=== PATIENT | female | born 1950 | race Caucasian/White ===

== ENCOUNTER → 2019-01-01 07:21 | Outpatient (CLI) | payer MEDICARE, SELFPAY ==
--- NOTE | 2019-01-01 07:23 | DI.US.S_ITS ---
PROCEDURE: US EXTREMITY NONVASC LOWER LT INDICATIONS: LEFT BUTTOCK LUMP TECHNIQUE: Real-time scanning was performed of the left buttock, with image documentation. COMPARISON: None. FINDINGS: Isoechoic, avascular soft tissue mass corresponding to the palpable abnormality measuring 9.0 x 5.3 x 12.4 cm. IMPRESSION: An isoechoic left buttock mass corresponding to the palpable abnormality. Findings may be related to lipoma given the sonographic appearance, but other benign or malignant neoplastic processes cannot be excluded. If clinically indicated, MRI with and without contrast could be performed for further characterization. Dictated by: Pete Kasper Krishna Interpreted: Karolyn Abernathy MD on 01/01/2019 at 9:00 Approved by: Karolyn Abernathy M.D. on 01/01/2019 at 10:44
== END ==
PROVIDERS: Family Provider Family Medicine; PCP Family Medicine; Visit Provider Physician Assistant
DX: R22.2 Localized swelling, mass and lump, trunk (principal)
CPT/HCPCS: 76882

== ENCOUNTER → 2019-01-24 13:13 | Outpatient (CLI) | payer MEDICARE, SELFPAY ==
--- NOTE | 2019-01-24 13:16 | DI.MRI.S_ITS ---
PROCEDURE: MR PELIS WO/W CON INDICATIONS: L gluteal area mass TECHNIQUE: Noncontrast coronal T1 spin echo and STIR, sagittal T1 spin echo with fat saturation and STIR, axial T1 spin echo and T2 fast spin echo with fat saturation. After the administration of contrast, axial/sagittal/coronal T1 spin echo with fat saturation through the pelvis. COMPARISON: None. FINDINGS: Image quality: Excellent. Bones: The visualized bone marrow demonstrates normal signal on all sequences. The overlying cortex appears intact. No abnormal intraosseous enhancement. L5-S1 spondylosis. Soft tissues: There is a prominent left gluteal fat signal intensity mass measuring approximately 13.6 x 6.5 cm although exact margins are not clear due to poorly visualized capsule. There are internal areas of mildly T2 hyperintense septations. These may demonstrate minimal enhancement on postcontrast pulse sequences. No definite enhancing mass or nodule is identified. IMPRESSION: Large predominantly fat signal intensity, superficial mass along the left gluteal region suggestive of lipoma. However, the presence of mildly T2 hyperintense, potentially minimally enhancing septations raises possibility of unencapsulated liposarcoma although this is technically nonspecific. As such, consider continued surveillance with repeat pelvic MRI with and without contrast to document long-term stability (in 6 months, or sooner if progressive palpable changes). Also, recommend oncologic surgical consultation and clinical/symptomatic management. Dictated by: Aguila Woo M.D. on 01/25/2019 at 9:11 Approved by: Aguila Woo M.D. on 01/25/2019 at 9:20
== END ==
PROVIDERS: Family Provider Family Medicine; PCP Family Medicine; Visit Provider Family Medicine
DX: R22.40 Localized swelling, mass and lump, unspecified lower limb (principal)
CPT/HCPCS: 72197; A9579

== ENCOUNTER 2019-03-28 14:27 | Day surgery (SDC) | payer MEDICARE, SELFPAY ==
[2019-03-14 10:58] VITALS: BMI 35.2
[2019-03-28] VITALS (7 sets, daily range): BP systolic 126–182; BP diastolic 61–111; PULSE 66–91; RESP 10–20; TEMP 36.3–36.6; O2SAT 95–98; BMI 35.2
--- NOTE | 2019-03-28 | PATH_ITS ---
[facility] Accession Number: [id number] . 01 Material submitted: . buttock - LEFT BUTTOCK MASS . 01 Diagnosis: Left Buttock Mass, Excision: Mature adipose tissue with degenerative changes and fat necrosis. Negative for atypia and malignancy. MRV/04/02/2019 . 01 Electronically signed: . Satnam Jimenez MD, Pathologist NPI- [id number] . 01 Gross description: . Received in formalin, labeled mass, left buttock, is a bright yellow-orange rubbery fatty mass (13.4 x 9.7 x 4.5 cm) with a homogenous unremarkable cut surface. Computer [employer] tissue submitted in cassettes A1-A8. ([id number]) /MRV . 01 Pathologist provided ICD-10: D17.9 . 01 CPT . 242716 Performed at: [address] [facility], [place], [place] [id number] MD Hola Courtney MD Phone: [phone]
[2019-03-28] MEDS: LACTATED RINGERS 1,000 ML 42 ML IV (14:30)
--- NOTE | 2019-03-28 15:01 | PM.PREOP ---
Pre-operative Note Interval Note History & Physical reviewed/Exam performed by Physician: Yes Changes to H&P: No
--- NOTE | 2019-03-28 15:19 | PM.PREOP ---
Pre-operative Note Interval Note History & Physical reviewed/Exam performed by Physician: Yes Changes to H&P: No
[2019-03-28] MEDS: CEFAZOLIN 2 GM/100 ML FROZ.PIGGY IV (15:20)
[2019-03-28] MEDS: BUPIVACAINE 0.5% (PF) VIAL 30 ML INJ (15:40)
--- NOTE | 2019-03-28 15:44 | SUR.OPER ---
Lateral on padded OR bed, head on pillow, bottom leg bent with gel pad under knee to foot, upper leg straight and supported with pillows. Upper arm supported by pillows and secured over bottom arm to padded arm board. Safety belt at hip, tape over blanket lower legs.
--- NOTE | 2019-03-28 16:19 | PM.OP.1 ---
Operative Date/Time/Diagnoses Date of procedure: 03/28/19 Time of procedure: 16:19 Pre-op diagnosis: Buttock mass probable lipoma Post-op diagnosis: same (Lesion 14 cm in largest diameter) Procedure & Clinicians Procedure: Excision of mass Same procedure as scheduled: Yes Indications: Growing mass in the buttock here for excision Surgeon: Eladio Atkinson Click Yes if Unassisted: Yes Anesthesia Type: General Operative Notes Findings: Large fatty mass consistent with a large lipoma Closure Type: primary Specimen(s): other (Mass) Prosthetic devices, grafts, tissues, transplants, or devices: None Estimated Blood Loss (mL): 15 Blood products transfused: none Procedure in detail: The patient was placed in the right lateral decubitus position on a beanbag and underwent general LMA anesthesia. The corbett bag was suctioned to hold the patient in place. she was prepped and draped in the usual fashion. local anesthetic was infiltrated overlying the mass. A small incision was made and carried down to the level of the mass. The mass appeared like a typical lipoma. There was no evidence of a sarcoma. Because of this the patient had additional local anesthetic infiltrated and the incision extended. Using principally blunt dissection and cautery the mass was from surrounding structures delivered into the wound and removed. one blood vessel was suture ligated. The rest were cauterized. The this hemostasis achieved. the subcu was closed with interrupted 3 0 Vicryl. The skin was closed with a running 4 0 Vicryl sh particular stitch and Steri-Strips. the patient was placed back on her bed, awakened and extubated and taken to the recovery area in good condition Complications: none Condition: stable Disposition: PACU
--- NOTE | 2019-03-28 16:47 | SUR.PHASEII ---
pt arrived to phase II via stretcher. pt sitting up and drinking water, alert and talking to RN. Drsg to surgical site observed to be c/d/i. pt denies any pain/discomfort at this time. pt awaiting return of friend from getting rx filled. bed in lowest position and call light given to pt. pt appears comfortable at this time.
== END 2019-03-28 17:17 | disposition home or self-care (01) ==
PROVIDERS: PCP Family Medicine; Visit Provider Specialist
PROC: (CPT 21931; principal; 2019-03-28 14:45)
DX: D17.1 Benign lipomatous neoplasm of skin and subcutaneous tissue of trunk (principal); I10 Essential (primary) hypertension
CPT/HCPCS: 21931; 88304; J0690; J2405; J2704; J3010

== ENCOUNTER → 2021-02-05 15:14 | Outpatient (CLI) | payer MEDICARE, SELFPAY ==
[2021-02-05] MEDS: COVID-19 VACC, Ad26(JANSSEN)/PF 0.5 ML IM (15:24)
== END ==
PROVIDERS: PCP Family Medicine; Visit Provider Internal Medicine
DX: Z23 Encounter for immunization (principal)
CPT/HCPCS: 0031A; 91303

== ENCOUNTER 2021-07-20 08:22 | Emergency (ER) | payer MEDICARE, SELFPAY ==
[2021-07-20] VITALS (9 sets, daily range): BP systolic 147–199; BP diastolic 74–109; PULSE 94–102; RESP 18; TEMP 36.9; O2SAT 89–100
--- NOTE | 2021-07-20 09:06 | PC.NURSE ---
Pt also feeling dizzy and passed out last night hitting her head. She is not on blood thinners and there is not a wound. Pt has contusion on top of head.
--- NOTE | 2021-07-20 10:18 | ED.GENADULT ---
HPI - General Adult General Chief complaint: Upper Respiratory Symptoms Stated complaint: wants covid tested again, cough Time Seen by Provider: 07/20/21 08:26 Source: patient Mode of arrival: Ambulatory Limitations: no limitations History of Present Illness HPI narrative: 71-year-old female. Has had coughing congestion for the past couple days. Was tested a couple days ago for COVID-19 and was negative. She has been immunized with the [employer] vaccine. Last evening had an episode where she felt like she passed out. She had no chest pain or shortness of breath prior to this. She does have some muscle soreness when she coughs. No underlying lung issues. No fevers. Related Data Home Medications Medication Instructions Recorded Confirmed aspirin 81 mg tablet,delayed 81 mg PO QDAY #0 05/09/13 04/26/19 release ascorbic acid (vitamin C) 1,000 mg 1 gram PO DAILY tab 01/30/19 04/26/19 tablet omeprazole 20 mg capsule,delayed 20 mg PO .QOD cap 01/30/19 04/26/19 release calcium carbonate 500 mg calcium 250 mg PO TID tab 03/13/19 04/26/19 (1,250 mg) tablet (Calcium 500) omega-3 fatty acids 1,000 mg 1,000 mg PO DAILY 03/13/19 04/26/19 capsule (Fish Oil Concentrate) rutin 500 mg tablet 500 mg PO DAILY 03/13/19 04/26/19 Previous Rx's Medication Instructions Recorded lisinopril 10 mg tablet 10 mg PO QDAY #90 tab 01/10/19 metoprolol tartrate 50 mg tablet 25 mg PO BID #90 tab 01/10/19 hydrocodone 5 mg-acetaminophen 325 1 tab PO Q4-6H PRN #14 tab 03/28/19 mg tablet ([place]) Allergies Allergy/AdvReac Type Severity Reaction Status Date / Time amoxicillin [From AUGMENTIN] Allergy Unknown Verified 04/26/19 14:58 clavulanic acid Allergy Unknown Verified 04/26/19 14:58 [From AUGMENTIN] nickel [NICKEL] Allergy Unknown Verified 04/26/19 14:58 Review of Systems Constitutional Constitutional: Denies fever(s) Cardiovascular Cardiovascular: Reports as per HPI Respiratory Respiratory: Reports as per HPI Gastrointestinal Gastrointestinal: Reports system reviewed and no additional complaints, except as documented Neurologic Neurologic: Reports as per HPI Hematologic/Lymphatic On Anticoagulants: No Patient History Medical History Eczema GERD (gastroesophageal reflux disease) HTN (hypertension) Surgical History H/O hammer toe correction Social History Smoking Status: Never smoker alcohol intake: current Smoking Status: Never smoker Substance Use Type: does not use Exam Initial Vital Signs Initial Vital Signs: Vital Signs Temperature 98.4 F 07/20/21 08:43 Pulse Rate 100 H 07/20/21 08:43 Respiratory Rate 18 07/20/21 08:43 Blood Pressure 149/109 H 07/20/21 08:43 Pulse Oximetry 100 07/20/21 08:43 Const General: cooperative and healthy appearing HENMT Head: normal to inspection and normocephalic Resp Effort & Inspection: normal respiratory effort Auscultation: clear to auscultation bilaterally Cardio Rate: regular rate Rhythm: regular rhythm GI Inspection: normal to inspection Neuro General: patient alert, patient awake, patient oriented x3 and moves all extremities Extrem General: normal to inspection and capillary refill normal Psych Appearance: grossly normal and well kempt Course Orders Ordered: ED Orders 07/20/21 08:42 EKG-12 Lead Stat 07/20/21 09:07 COVID19 -Nasal swab/Pre-Proc Stat Vital Signs Vital signs: Vital Signs - 8 hr 07/20/21 08:43 Temperature 98.4 F Pulse Rate 100 H Respiratory Rate 18 Blood Pressure 149/109 H Pulse Oximetry 100 Medical Decision Making Lab Data Labs: Lab Results 07/20/21 Range/Units 09:07 SARS-CoV-2 (PCR) Positive H (Negative) ECG Data Attestation: I personally reviewed and interpreted this ECG as follows: Interpretation: Sinus tachycardia Ventricular rate 1 0 to Normal axis Normal QRS Normal QTC Nonspecific ST T wave changes MDM Narrative Medical decision making narrative: Patient's COVID test is positive today. She has a clear lung exam. Not hypoxic. No indication for antibiotics. EKG is unremarkable. Patient could be safely discharged home without further workup. She was given return precautions and follow-up instructions. She expressed understanding and agreement. Discharge Plan Departure Patient Disposition: Home Clinical Impression: COVID-19 Instructions: DI for COVID-19 (Suspected or Confirmed ) Activity Restrictions/Additional Instructions: Your COVID test today was positive. Current guidelines are is that your to quarantine yourself for 10 days since the start of your symptoms. You also need to be fever free and the rest of your symptoms improving. Contact your primary doctor for a follow-up. You can take Tylenol for any discomfort. Return to the emergency department for any problems breathing. Prescriptions: No Action ascorbic acid (vitamin C) 1,000 mg tablet 1 gram PO DAILY RF: 0 omeprazole 20 mg capsule,delayed release(DR/EC) 20 mg PO .QOD RF: 0 aspirin 81 MG tablet,delayed release (DR/EC) 81 mg PO QDAY Qty: 0 RF: 0 lisinopril 10 mg tablet 10 mg PO QDAY Qty: 90 RF: 1 metoprolol tartrate 50 mg tablet 25 mg PO BID Qty: 90 RF: 1 calcium carbonate [Calcium 500] 500 mg calcium (1,250 mg) tablet 250 mg PO TID RF: 0 omega-3 fatty acids [Fish Oil Concentrate] 1,000 mg capsule 1,000 mg PO DAILY RF: 0 rutin 500 mg tablet 500 mg PO DAILY RF: 0 hydrocodone-acetaminophen [[place]] 5-325 mg tablet 1 tab PO Q4-6H PRN (Reason: painful procedure) Qty: 14 RF: 0 Referrals: Liset Cornejo DO [Primary Care Provider] -
[2021-07-20 10:26] LABS: COVID19 -Nasal RAPID POSITIVE (Negative)
== END 2021-07-20 11:15 | disposition home or self-care (01) ==
PROVIDERS: Emergency Provider Emergency Medicine; PCP Family Medicine
DX: U07.1 COVID-19 (principal); R07.9 Chest pain, unspecified
CPT/HCPCS: 87635; 93005; 93010; 99283; C9803

== ENCOUNTER → 2021-08-30 07:22 | Outpatient (CLI) | payer MEDICARE, SELFPAY ==
[2021-08-30 08:13] LABS: Add Manual Diff / Slide Review NO; Basophils Absolute Auto 0 /uL (0-100); Basophils Percent Auto 0.5 % (0-2); Eosinophils Absolute Auto 100 /uL (0-450); Eosinophils Percent Auto 1.6 % (2-4); Hematocrit 42.5 % (36-46); Hemoglobin 14.2 g/dL (12.0-16.0); Lymphocytes Absolute Auto 2200 /uL (1100-4500); Lymphocytes Percent Auto 37.7 % (25-40); Mean Corpuscular HGB Conc 33.4 % (30-36); Mean Corpuscular Hemoglobin 29.9 PG (26-34); Mean Corpuscular Volume 89.5 fL (80-100); Monocytes Absolute Auto 400 /uL (0-900); Monocytes Percent Auto 7.6 % (3-14); Neutrophils Absolute Auto 3100 /uL (1500-7000); Neutrophils Percent Auto 52.6 % (50-75); Platelet Count 291 X10^3/uL (150-400); Red Blood Cell Count 4.74 X10^6/uL (4.0-5.2); White Blood Cell Count 5.9 X10^3/uL (4.5-11.0)
[2021-08-30 08:36] LABS: Alanine Aminotransferase 16 IU/L (<35); Albumin Globulin Ratio 1.4 (1.0-2.8); Alkaline Phosphatase 91 U/L (38-126); Aspartate Aminotransferase 23 IU/L (14-36); BUN Creatinine Ratio 23.3 (6-22); Bilirubin Total 0.6 mg/dL (0.2-1.3); Blood Urea Nitrogen 14 mg/dL (7-17); Calcium 9.6 mg/dL (8.4-10.2); Carbon Dioxide 33 mmol/L (22-32); Chloride 102 mmol/L (98-107); Cholesterol 230 mg/dL (140-199); Estimated Glomerular Filt Rate > 60.0 mL/min (>60); Globulin 2.9 g/dL (1.7-4.1); Glucose 103 mg/dL (80-110); HDL Cholesterol 60 mg/dL (40-60); HEMOLYSIS < 15 (0-50); LDL Cholesterol Calculated 148 mg/dL (<100); Potassium 4.1 mmol/L (3.4-5.1); Sodium 140 mmol/L (137-145); Total Protein 6.9 g/dL (6.3-8.2); Triglycerides 112 mg/dL (35-150)
[2021-08-30 09:07] LABS: TSH w/ Reflex to FT4 1.11 uIU/mL (0.47-4.68)
[2021-08-31 10:17] LABS: Creatinine Urine Random 205.3 mg/dL
[2021-08-31 10:24] LABS: Microalbumi Creatinin Ratio Ur 5.3 ug/mg CR (<30); Microalbumin Urine Random 1.1 mg/dL (0-1.6)
== END ==
PROVIDERS: PCP Family Medicine; Referring Provider Family Medicine; Visit Provider Family Medicine
DX: E78.5 Hyperlipidemia, unspecified (principal); I10 Essential (primary) hypertension; K21.9 Gastro-esophageal reflux disease without esophagitis
CPT/HCPCS: 36415; 80053; 80061; 82043; 82570; 84443; 85025

== ENCOUNTER 2022-12-01 06:50 | Emergency (ER) | payer OTHER, SELFPAY ==
[2022-12-01] VITALS (8 sets, daily range): BP systolic 172–195; BP diastolic 90–106; PULSE 81–99; RESP 20; TEMP 36.6; O2SAT 92–97
--- NOTE | 2022-12-01 07:00 | DI.RAD.S_ITS ---
PROCEDURE: XR CHEST 2V INDICATIONS: cough TECHNIQUE: 2 views of the chest were acquired. COMPARISON: [facility], , CHEST 1 VIEW, 11/15/2013, 16:49. FINDINGS: Surgical changes and devices: None. Lungs and pleura: Lungs are clear. No pleural effusions or pneumothorax. Mediastinum: Mediastinal contours are normal. Heart size is normal. Bones and chest wall: No suspicious bony abnormalities. Soft tissues appear unremarkable. IMPRESSION: Stable radiographic evaluation of the chest without acute cardiopulmonary abnormalities or focal airspace disease. Dictated by: Thiago Angel M.D. on 12/01/2022 at 7:47 Approved by: Thiago Angel M.D. on 12/01/2022 at 7:48
--- NOTE | 2022-12-01 07:46 | ED.URI ---
HPI - URI/Sore Throat General Chief Complaint: Upper Respiratory Symptoms Stated Complaint: coughing for t-14/started coughing up blood t-1 Time Seen by Provider: 12/01/22 07:00 Source: patient Mode of arrival: Ambulatory History of Present Illness HPI Narrative: 72-year-old female nonsmoker with history of hypertension, hyperlipidemia and GERD presents with a chief complaint cough and shortness of breath over the past 2-3 weeks and now sputum appears bloody. She is not dizzy nor weak or lightheaded. She denies any fever or chills. She is had some nasal congestion and runny nose and her cough is largely dry but does occasionally bring up sputum. She states that the blood was 1st noticed over the past day or 2. She does not take any blood thinners. She denies any trauma or injury. She is had no recent travel, history of blood clot, cancer, surgical interventions or lower extremity pain, swelling or redness. She states that her shortness of breath is present only when walking but is not associated with other possible cardiac equivalent such as dizziness, weakness, lightheadedness, nausea, vomiting, unexplained diaphoresis or exercise intolerance. Related Data Home Medications Medication Instructions Recorded Confirmed aspirin 81 mg tablet,delayed 81 mg PO QDAY ##0 05/09/13 09/27/21 release ascorbic acid (vitamin C) 1,000 mg 1 gram PO DAILY 01/30/19 09/27/21 tablet calcium carbonate 500 mg calcium 250 mg PO TID 03/13/19 09/27/21 (1,250 mg) tablet (Calcium 500) rutin 500 mg tablet 500 mg PO DAILY 03/13/19 09/27/21 omeprazole 20 mg capsule,delayed 20 mg PO DAILY 09/27/21 09/27/21 release Previous Rx's Medication Instructions Recorded metoprolol tartrate 50 mg tablet 25 mg PO BID #90 tabs 08/27/21 atorvastatin 20 mg tablet 20 mg PO BEDTIME #90 tabs 09/27/21 losartan 100 mg tablet 100 mg PO DAILY #90 tabs 09/27/21 benzonatate 200 mg capsule 200 mg PO BID PRN cough #20 caps 12/01/22 doxycycline hyclate 100 mg tablet 100 mg PO BID #20 tabs 12/01/22 Allergies Allergy/AdvReac Type Severity Reaction Status Date / Time amoxicillin [From AUGMENTIN] Allergy Unknown Verified 08/27/21 09:03 clavulanic acid Allergy Unknown Verified 08/27/21 09:03 [From AUGMENTIN] nickel [NICKEL] Allergy Unknown Verified 08/27/21 09:03 Review of Systems Review of Systems Narrative: GENERAL: See HPI HEENT: See HPI RESPIRATORY: See HPI CARDIOVASCULAR: See HPI GASTROINTESTINAL: Denies nausea, vomiting, abdominal pain, diarrhea, constipation, melena. : Denies dysuria, frequency, incontinence, hematuria, urinary retention. MUSCULOSKELETAL: denies weakness, joint pain, or bony pain SKIN: Denies rash, skin lesions, or other NEUROLOGIC: Denies weakness, headache, numbness, change in speech, confusion, seizures, incoordination. PSYCHIATRIC: No concerning psychosocial issues. 12 point review of systems is negative except for those stated above Patient History Medical History Eczema GERD (gastroesophageal reflux disease) HTN (hypertension) Hyperlipidemia Surgical History H/O hammer toe correction Social History Smoking Status: Never smoker alcohol intake: current Smoking Status: Never smoker Substance Use Type: does not use Exam Narrative Exam Narrative: GENERAL: []72 year old patient appears stated age. Well-developed patient, in mild distress. HEAD: Atraumatic. Normocephalic. EYES: Pupils equal round and reactive. Extraocular motions intact. No scleral icterus. No injection or drainage. ENT: Nose without bleeding, purulent drainage. Throat without erythema, tonsillar hypertrophy or exudate. Airway patent. NECK: Trachea midline. Non tender CARDIOVASCULAR: Regular rate and rhythm without murmurs, gallops, or rubs. RESPIRATORY: Clear to auscultation. Breath sounds equal bilaterally. No wheezes, rales, or rhonchi. GASTROINTESTINAL: Abdomen soft, non-tender, nondistended. EXTREMITIES: No edema or joint tenderness. BACK: Nontender without deformity or crepitance. No flank tenderness. NEURO: AOx3. SKIN: No rash or erythema of visible areas Initial Vital Signs Initial Vital Signs: Vital Signs Temperature 97.8 F 12/01/22 07:00 Pulse Rate 99 H 12/01/22 07:00 Respiratory Rate 20 12/01/22 07:00 Blood Pressure 178/106 H 12/01/22 07:00 Pulse Oximetry 96 12/01/22 07:00 Oxygen Delivery Method 12/01/22 07:00 Course Orders Ordered: Discontinued Medications Sodium Chloride (Normal Saline 0.9%) 500 mls @ 1,000 mls/hr IV BOLUS ONE Stop: 12/01/22 08:51 Last Infusion: 12/01/22 09:41 Dose: 0 mls/hr Documented By: Admin: 12/01/22 09:02 Dose: 1,000 mls/hr Documented By: NR Vital Signs Vital signs: Vital Signs - 8 hr 12/01/22 07:00 12/01/22 08:21 12/01/22 08:30 Temperature 97.8 F Pulse Rate 99 H 90 93 H Respiratory Rate 20 Blood Pressure 178/106 H Pulse Oximetry 96 94 92 Oxygen Delivery Method Room Air 12/01/22 08:42 12/01/22 08:42 12/01/22 09:00 Temperature Pulse Rate 87 Respiratory Rate Blood Pressure 185/90 H 172/91 H Pulse Oximetry 93 Oxygen Delivery Method 12/01/22 09:00 12/01/22 09:30 12/01/22 09:30 Temperature Pulse Rate 86 81 Respiratory Rate Blood Pressure 184/91 H Pulse Oximetry 92 97 Oxygen Delivery Method MDM - URI/Sore Throat Lab Data Result diagrams: 12/01/22 08:40 12/01/22 08:40 Labs: Lab Results 12/01/22 12/01/22 12/01/22 Range/Units 07:07 08:40 08:40 WBC 7.7 (4.5-11.0) X10^3/uL RBC 4.69 (4.0-5.2) X10^6/uL Hgb 14.0 (12.0-16.0) g/dL Hct 41.7 (36-46) % MCV 88.9 (80-100) fL MCH 29.8 (26-34) PG MCHC 33.5 (30-36) % RDW 13.0 (11.6-14.8) % Plt Count 289 (150-400) X10^3/uL Neut % (Auto) 63.5 (50-75) % Lymph % (Auto) 24.2 L (25-40) % [place] % (Auto) 8.7 (3-14) % Eos % (Auto) 2.8 (2-4) % Baso % (Auto) 0.8 (0-2) % Neut # (Auto) 4900 (6852-5513) /uL Lymph # (Auto) 1900 (6002-7701) /uL [place] # (Auto) 700 (0-900) /uL Eos # (Auto) 200 (0-450) /uL Baso # (Auto) 100 (0-100) /uL PT 11.4 (10.1-12.7) SECONDS INR 1.0 (0.9-1.3) APTT 29 (26-36) SECONDS D-Dimer 688 H (<500) ng/ml Sodium (137-145) mmol/L Potassium (3.4-5.1) mmol/L Chloride (98-107) mmol/L Carbon Dioxide (22-32) mmol/L BUN (7-17) mg/dL Creatinine (0.52-1.04) mg/dL Estimated GFR (>60) mL/min BUN/Creatinine Ratio (6-22) Glucose (80-110) mg/dL Calcium (8.4-10.2) mg/dL Magnesium (1.6-2.3) mg/dL Total Bilirubin (0.2-1.3) mg/dL AST (14-36) IU/L ALT (<35) IU/L Alkaline Phosphatase (38-126) U/L Total Creatine Kinase (30-135) U/L CK-MB (CK-2) CK-MB (CK-2) Rel Index Troponin I (0.01-0.034) ng/mL NT-Pro-B Natriuret Pep (<125) pg/mL Total Protein (6.3-8.2) g/dL Albumin (3.5-5.0) g/dL Globulin (1.7-4.1) g/dL Albumin/Globulin Ratio (1.0-2.8) Lipase (23-300) U/L Procalcitonin (<0.5) ng/mL SARS-CoV-2 (PCR) Negative (Negative) Influenza A (RT-PCR) Flu a negative (NEGATIVE) Influenza B (RT-PCR) Flu b negative (NEGATIVE) RSV (PCR) Negative (Negative) 12/01/22 Range/Units 08:40 WBC (4.5-11.0) X10^3/uL RBC (4.0-5.2) X10^6/uL Hgb (12.0-16.0) g/dL Hct (36-46) % MCV (80-100) fL MCH (26-34) PG MCHC (30-36) % RDW (11.6-14.8) % Plt Count (150-400) X10^3/uL Neut % (Auto) (50-75) % Lymph % (Auto) (25-40) % [place] % (Auto) (3-14) % Eos % (Auto) (2-4) % Baso % (Auto) (0-2) % Neut # (Auto) (4213-1104) /uL Lymph # (Auto) (0409-6310) /uL [place] # (Auto) (0-900) /uL Eos # (Auto) (0-450) /uL Baso # (Auto) (0-100) /uL PT (10.1-12.7) SECONDS INR (0.9-1.3) APTT (26-36) SECONDS D-Dimer (<500) ng/ml Sodium 139 (137-145) mmol/L Potassium 3.8 (3.4-5.1) mmol/L Chloride 100 (98-107) mmol/L Carbon Dioxide 31 (22-32) mmol/L BUN 13 (7-17) mg/dL Creatinine 0.55 (0.52-1.04) mg/dL Estimated GFR > 60 (>60) mL/min BUN/Creatinine Ratio 23.6 H (6-22) Glucose 98 (80-110) mg/dL Calcium 9.0 (8.4-10.2) mg/dL Magnesium 2.0 (1.6-2.3) mg/dL Total Bilirubin 0.6 (0.2-1.3) mg/dL AST 34 (14-36) IU/L ALT 28 (<35) IU/L Alkaline Phosphatase 132 H (38-126) U/L Total Creatine Kinase 71 (30-135) U/L CK-MB (CK-2) TNP CK-MB (CK-2) Rel Index TNP Troponin I < 0.012 (0.01-0.034) ng/mL NT-Pro-B Natriuret Pep 106 (<125) pg/mL Total Protein 8.0 (6.3-8.2) g/dL Albumin 4.2 (3.5-5.0) g/dL Globulin 3.8 (1.7-4.1) g/dL Albumin/Globulin Ratio 1.1 (1.0-2.8) Lipase 124 (23-300) U/L Procalcitonin 0.04 (<0.5) ng/mL SARS-CoV-2 (PCR) (Negative) Influenza A (RT-PCR) (NEGATIVE) Influenza B (RT-PCR) (NEGATIVE) RSV (PCR) (Negative) Urine Dip Bedside Urine Glucose Negative Bedside Urine Bilirubin - Negative Bedside Urine Ketone - Negative Urine Specific [place] 1.015 Bedside Urine Occult Blood - Negative Bedside Urine pH 6.0 Bedside Urine Protein - Negative Bedside Urine Urobilinogen - Negative Bedside Urine Nitrite - Negative Bedside Urine Leukocytes - Negative Esterase Imaging Data Chest x-ray: Radiologist's Impression: [address] [id number] XRay Report Signed Patient: Tessy Vazquez MR#: [id number] : 1950 Acct:[id number] Age/Sex: 72 / F Date of Service: 12/01/22 Loc: Accession Number: [id number] ?? Procedure: XR chest 2V Ordering Provider: Andre Pressley D.O. PROCEDURE:? XR CHEST 2V ? INDICATIONS:? cough ? TECHNIQUE:? 2 views of the chest were acquired.? ? COMPARISON:? [facility], , CHEST 1 VIEW, 11/15/2013, 16:49. ? FINDINGS:? ? Surgical changes and devices:? None.? ? Lungs and pleura:? Lungs are clear.? No pleural effusions or pneumothorax.? ? Mediastinum:? Mediastinal contours are normal.? Heart size is normal.? ? Bones and chest wall:? No suspicious bony abnormalities.? Soft tissues appear unremarkable.? ? IMPRESSION:? Stable radiographic evaluation of the chest without acute cardiopulmonary abnormalities or focal airspace disease. ? Dictated by: Thiago Angel M.D. on 12/01/2022 at 7:47 ? ? Approved by: Thiago Angel M.D. on 12/01/2022 at 7:48 ? CT scan - chest: Radiologist's Impression: No pulmonary embolism, infiltrate, consolidation or pleural effusion. 2 mm nodule in right upper lobe, recommend follow-up recommended at 12 months MDM Narrative Medical decision making narrative: 72-year-old female with history of hyperlipidemia presents with a few weeks of exertional dyspnea and cough with 1 episode of mild hemoptysis [] Multiple etiologies for patient's symptoms considered including, but not limited to: [Pneumonia, viral upper respiratory infection such as flu, COVID or RSV, CHF, cardiac ischemia, pulmonary embolism, lung cancer versus other] Prior Charts reviewed: Including family practice visits from last year with Dr. Tam Labs reviewed and interpreted by myself: No evidence elevated white blood cell count or left shift, no anemia, platelets normal, coagulation studies largely normal, D-dimer is below the age corrected cutoff for pulmonary embolism though CTA still ordered given other concerns such as lung mass, infiltrate and other Imaging reviewed: Chest x-ray without infiltrate, CT angiogram without infiltrate, pulmonary embolism, small incidental finding of pulmonary nodule discussed with patient and encouraged to follow-up Patient's symptoms improved over duration of stay with above-stated therapies. Given duration of cough, subtle worsening of symptoms and negative respiratory swabs will treat for atypical pneumonia Findings and discharge diagnosis discussed with patient/family followed by verbalization of understanding Return precautions discussed with patient/family whom verbalize understanding of diagnosis and plan Discharge Plan Departure Patient Disposition: Home Clinical Impression: Cough, Acute dyspnea, Atypical pneumonia, Pulmonary nodule, HTN (hypertension) Instructions: DI for Atypical Pneumonia Activity Restrictions/Additional Instructions: *You have been diagnosed with [cough with hemoptysis, likely due to atypical pneumonia. As we discussed the other, more concerning potential causes of blood in your sputum do not appear to be present at this time.] *What to do: *Please continue to take your regular medications as directed. [ x] New medication prescriptions sent to your pharmacy: [[facility]] [ ] New medication written as a paper prescription [ ] No new medications given *Please follow up with your primary care provider in 2-3 days, call for an appointment. Let them know you were seen in the Emergency Department and that we ask that you be seen in follow up. We will electronically transmit a record of today's note if your PCP is in our system *An incidental finding noting a small 2mm nodule in your lung was noted on the CT and will need to be followed by your doctor in about a year *If you do not have a primary care provider please contact the [facility] Resource line at [phone]. They will ask some questions about your medical history and help get you set up with a doctor in the community. *Return to Emergency Department if you should have any new, worsening or concerning symptoms, such as [fever greater than 101 F, shaking chills, worsening pain, persistent vomiting or other bothersome symptoms] Prescriptions: New benzonatate 200 mg capsule 200 mg PO BID PRN (Reason: cough) Qty: 20 0RF doxycycline hyclate 100 mg tablet 100 mg PO BID Qty: 20 0RF No Action ascorbic acid (vitamin C) 1,000 mg tablet 1 gram PO DAILY aspirin 81 MG tablet,delayed release (DR/EC) 81 mg PO QDAY Qty: 0 metoprolol tartrate 50 mg tablet 25 mg PO BID Qty: 90 1RF atorvastatin 20 mg tablet 20 mg PO BEDTIME Qty: 90 3RF losartan 100 mg tablet 100 mg PO DAILY Qty: 90 3RF omeprazole 20 mg capsule,delayed release(DR/EC) 20 mg PO DAILY calcium carbonate [Calcium 500] 500 mg calcium (1,250 mg) tablet 250 mg PO TID rutin 500 mg tablet 500 mg PO DAILY Referrals: Marco Tam MD [Primary Care Provider] - Stand Alone Forms: Patient Portal/API
[2022-12-01 07:54] LABS: Influenza A - CEPHEID Flu A NEGATIVE (NEGATIVE); Influenza B - CEPHEID Flu B NEGATIVE (NEGATIVE); Respiratory Syncytial Virus Negative (Negative)
[2022-12-01 07:55] LABS: COVID-19 CEPHEID 4-PLEX PCR Negative (Negative)
[2022-12-01 08:51] LABS: Add Manual Diff / Slide Review NO; Basophils Absolute Auto 100 /uL (0-100); Basophils Percent Auto 0.8 % (0-2); Eosinophils Absolute Auto 200 /uL (0-450); Eosinophils Percent Auto 2.8 % (2-4); Hematocrit 41.7 % (36-46); Lymphocytes Absolute Auto 1900 /uL (1100-4500); Lymphocytes Percent Auto 24.2 % (25-40); Mean Corpuscular HGB Conc 33.5 % (30-36); Mean Corpuscular Hemoglobin 29.8 PG (26-34); Mean Corpuscular Volume 88.9 fL (80-100); Monocytes Absolute Auto 700 /uL (0-900); Monocytes Percent Auto 8.7 % (3-14); Neutrophils Absolute Auto 4900 /uL (1500-7000); Neutrophils Percent Auto 63.5 % (50-75); Platelet Count 289 X10^3/uL (150-400); Red Blood Cell Count 4.69 X10^6/uL (4.0-5.2); White Blood Cell Count 7.7 X10^3/uL (4.5-11.0)
[2022-12-01 08:59] LABS: Prothrombin Time 11.4 SECONDS (10.1-12.7)
[2022-12-01 09:01] LABS: D Dimer 688 ng/ml (<500)
[2022-12-01 09:02] LABS: PTT Partial Thromboplastin Tim 29 SECONDS (26-36)
[2022-12-01] MEDS: SODIUM CHLORIDE 0.9% 500 ML 1000 ML IV (09:02)
[2022-12-01 09:09] LABS: Alanine Aminotransferase 28 IU/L (<35); Albumin 4.2 g/dL (3.5-5.0); Albumin Globulin Ratio 1.1 (1.0-2.8); Alkaline Phosphatase 132 U/L (38-126); Aspartate Aminotransferase 34 IU/L (14-36); BUN Creatinine Ratio 23.6 (6-22); Bilirubin Total 0.6 mg/dL (0.2-1.3); Blood Urea Nitrogen 13 mg/dL (7-17); Carbon Dioxide 31 mmol/L (22-32); Chloride 100 mmol/L (98-107); Creatine Kinase 71 U/L (30-135); Estimated Glomerular Filt Rate > 60 mL/min (>60); Globulin 3.8 g/dL (1.7-4.1); Glucose 98 mg/dL (80-110); HEMOLYSIS < 15 (0-50); Lipase 124 U/L (23-300); Potassium 3.8 mmol/L (3.4-5.1); Sodium 139 mmol/L (137-145)
--- NOTE | 2022-12-01 09:21 | DI.CT.S_ITS ---
PROCEDURE: CT ANGIO CHEST PE PROTOCOL INDICATIONS: hemoptysis, exertional SOB, cough, elevated Dimer TECHNIQUE: After the administration of intravenous contrast, 2 mm thick sections acquired from the pulmonary apices to the posterior costophrenic angles. 3-dimensional maximum intensity projection (MIP) coronal and sagittal reformats were then acquired through the thorax. For radiation dose reduction, the following was used: automated exposure control, adjustment of mA and/or kV according to patient size. COMPARISON: [facility], , CHEST 1 VIEW, 11/15/2013, 16:49. [facility], CR, XR CHEST 2V, 12/01/2022, 7:19. FINDINGS: Image quality: Excellent. Pulmonary arteries: Pulmonary arteries are normal in size, and demonstrate no intraluminal filling defects to suggest central pulmonary embolism. Lungs and pleura: There is a 2 mm nodule in the right upper lobe (series 5, image 74). Mild emphysema. No pleural effusions or pneumothorax. Central and peripheral airways are patent. Mediastinum: Heart size is normal, without pericardial effusion. No mediastinal or hilar adenopathy. Thoracic aorta is normal in caliber and enhancement. Esophagus is normal in caliber. There is a moderate-sized hiatal hernia. Bones and chest wall: No suspicious bony lesions. Ribs and thoracic spine appear intact throughout. Thyroid gland is normal in size. There are small hypodense nodules in thyroid gland. No axillary or supraclavicular adenopathy. Abdomen: Visualized upper abdominal solid organs appear normal in the early arterial phase of enhancement. IMPRESSION: 1. No evidence for pulmonary embolism. 2. No pulmonary infiltrate, consolidation or pleural effusion. 3. Mild emphysema. 4. A 2 mm nodule in the right upper lobe. Please see enclosed follow-up recommendation. 5. A moderate-sized hiatal hernia. Fleischner Society criteria for SOLID lung nodule followup. Nodule size (mm)Low-risk patientHigh-risk patient?4No follow-up neededFollow-up at 12 mo; if no change, no further follow-up>4-5Zyylsb-on CT at 12 mo; if no change, no further follow-up needed.Initial follow-up CT at 6-12 mo, then 18-24 mo if no change. >6-8Initial follow-up CT at 6-12 mo, then 18-24 mo if no change. Initial follow-up CT at 3-6 mo, then 9-12 mo and 24 mo if no change. >8Follow-up CT at 3, 9, 24 mo. Or PET and/or biopsy.Same as for low-risk pts. Dictated by: Karolyn Abernathy M.D. on 12/01/2022 at 11:01 Approved by: Karolyn Abernathy M.D. on 12/01/2022 at 11:31
[2022-12-01 09:22] LABS: NT-proBNP (BNP-Adult 18+) 106 pg/mL (<125); Troponin I < 0.012 ng/mL (0.01-0.034)
[2022-12-01 09:26] LABS: Procalcitonin 0.04 ng/mL (<0.5)
== END 2022-12-01 11:54 | disposition home or self-care (01) ==
PROVIDERS: Emergency Provider Emergency Medicine; PCP Family Medicine
DX: J18.9 Pneumonia, unspecified organism (principal); R06.00 Dyspnea, unspecified; I10 Essential (primary) hypertension; R91.1 Solitary pulmonary nodule; Z79.899 Other long term (current) drug therapy; Z20.822 Contact with and (suspected) exposure to COVID-19
CPT/HCPCS: 0241U; 36415; 71046; 71275; 80053; 81003; 82550; 83690; 83735; 83880; 84145; 84484; 85025; 85379; 85610; 85730; 93005; 93010; 96360; 99284; Q9967

== ENCOUNTER → 2022-12-28 06:57 | Outpatient (CLI) | payer OTHER, SELFPAY ==
[2022-12-28 09:33] LABS: Creatinine Urine Random 183.4 mg/dL
[2022-12-28 09:37] LABS: Microalbumi Creatinin Ratio Ur 5.9 ug/mg CR (<30); Microalbumin Urine Random 1.1 mg/dL (0-1.6)
[2022-12-28 10:42] LABS: Add Manual Diff / Slide Review NO; Basophils Absolute Auto 100 /uL (0-100); Basophils Percent Auto 0.9 % (0-2); Eosinophils Absolute Auto 200 /uL (0-450); Hematocrit 41.3 % (36-46); Hemoglobin 13.9 g/dL (12.0-16.0); Lymphocytes Absolute Auto 2300 /uL (1100-4500); Lymphocytes Percent Auto 35.7 % (25-40); Mean Corpuscular HGB Conc 33.7 % (30-36); Mean Corpuscular Hemoglobin 29.6 PG (26-34); Mean Corpuscular Volume 87.9 fL (80-100); Monocytes Absolute Auto 500 /uL (0-900); Monocytes Percent Auto 8.5 % (3-14); Neutrophils Absolute Auto 3300 /uL (1500-7000); Neutrophils Percent Auto 51.9 % (50-75); Platelet Count 272 X10^3/uL (150-400); Red Cell Distribution Width 13.2 % (11.6-14.8); White Blood Cell Count 6.4 X10^3/uL (4.5-11.0)
[2022-12-28 11:13] LABS: Alanine Aminotransferase 20 IU/L (<35); Albumin 4.2 g/dL (3.5-5.0); Albumin Globulin Ratio 1.4 (1.0-2.8); Alkaline Phosphatase 112 U/L (38-126); Aspartate Aminotransferase 23 IU/L (14-36); BUN Creatinine Ratio 29.5 (6-22); Bilirubin Total 0.5 mg/dL (0.2-1.3); Blood Urea Nitrogen 18 mg/dL (7-17); Calcium 9.2 mg/dL (8.4-10.2); Carbon Dioxide 31 mmol/L (22-32); Chloride 95 mmol/L (98-107); Cholesterol 251 mg/dL (140-199); Estimated Glomerular Filt Rate > 60 mL/min (>60); Globulin 2.9 g/dL (1.7-4.1); Glucose 96 mg/dL (80-110); HDL Cholesterol 49 mg/dL (40-60); HEMOLYSIS < 15 (0-50); LDL Cholesterol Calculated 161 mg/dL (<100); Sodium 137 mmol/L (137-145); Total Protein 7.1 g/dL (6.3-8.2); Triglycerides 204 mg/dL (35-150)
[2022-12-28 11:44] LABS: TSH w/ Reflex to FT4 2.51 uIU/mL (0.47-4.68)
== END ==
PROVIDERS: PCP Family Medicine; Referring Provider Family Medicine; Visit Provider Family Medicine
DX: E78.5 Hyperlipidemia, unspecified (principal); I10 Essential (primary) hypertension; K21.9 Gastro-esophageal reflux disease without esophagitis; R91.1 Solitary pulmonary nodule
CPT/HCPCS: 36415; 80053; 80061; 82043; 82570; 84443; 85025

== ENCOUNTER → 2023-03-10 10:42 | Outpatient (CLI) | payer OTHER, SELFPAY ==
--- NOTE | 2023-03-10 | DI.MG.S_ITS ---
BILATERAL DIGITAL SCREENING MAMMOGRAM 3D/2D WITH CAD: 03/10/2023 CLINICAL: Routine screening. Comparison is made to exams dated: 02/04/2019 ultrasound, 02/04/2019 mammogram - [facility], and 11/12/2012 mammogram - [facility]. Both breasts are almost entirely fatty (category a/<25% glandular tissue). Current study was also evaluated with a Computer Aided Detection (CAD) system. No significant masses, calcifications, or other findings are seen in either breast. There has been no significant interval change. IMPRESSION: NEGATIVE There is no mammographic evidence of malignancy. A 1 year screening mammogram is recommended. Based on the Tyrer Cuzick model (a risk assessment model) the patient's lifetime risk is 2.9% and her 10 year risk is 1.9%. According to the ACR, ACS, and NCCN guidelines, an annual breast MRI exam along with mammogram is recommended if the patient's lifetime risk is 20% or greater. This exam was interpreted at Station ID: [id number]. NOTE: For mammograms, a report in lay terms will be sent to the patient. Approximately 15% of breast malignancies will not be visualized mammographically. In the management of a palpable breast mass, a negative mammogram must not discourage biopsy of a clinically suspicious lesion. Electronically Signed By: Thiago arreguin/chris:03/10/2023 12:41:04 letter sent: Normal Exam ACR BI-RADS Category 1: Negative 3341F
== END ==
PROVIDERS: PCP Family Medicine; Referring Provider Family Medicine; Visit Provider Family Medicine
DX: Z12.31 Encounter for screening mammogram for malignant neoplasm of breast (principal)
CPT/HCPCS: 77063; 77067

== ENCOUNTER 2023-08-20 06:45 | Emergency (ER) | payer OTHER, SELFPAY ==
[2023-08-20 06:55] VITALS: BP 167/74; PULSE 93; RESP 20; TEMP 36.4; O2SAT 96; BMI 30.7
--- NOTE | 2023-08-20 07:24 | ED_ITS ---
HPI - Skin/Abscess/Foreign Bdy General Chief complaint: Skin/Abscess/Foreign Body Stated complaint: infected gash on forhead Time Seen by Provider: 08/20/23 07:01 Source: patient Mode of arrival: Ambulatory Limitations: no limitations History of Present Illness HPI narrative: Patient is a 73-year-old female who states that 1 week ago she sustained a ?bite? to her forehead. States that since that time it has become more red and started to scab over. She is no other injuries from the event. Has not tried anything for the symptoms prior to arrival. Related Data Home Medications Medication Instructions Recorded Confirmed aspirin 81 mg tablet,delayed 81 mg PO QDAY ##0 05/09/13 01/20/23 release ascorbic acid (vitamin C) 1,000 mg 1 gram PO DAILY 01/30/19 01/20/23 tablet calcium carbonate 500 mg calcium 250 mg PO TID 03/13/19 01/20/23 (1,250 mg) tablet (Calcium 500) rutin 500 mg tablet 500 mg PO DAILY 03/13/19 01/20/23 omeprazole 20 mg capsule,delayed 20 mg PO DAILY 09/27/21 01/20/23 release Previous Rx's Medication Instructions Recorded losartan 100 1 tab PO DAILY #90 tabs 12/15/22 mg-hydrochlorothiazide 25 mg tablet metoprolol tartrate 50 mg tablet 25 mg PO BID #90 tabs 12/15/22 atorvastatin 20 mg tablet 20 mg PO BEDTIME #90 tabs 01/20/23 cephalexin 500 mg capsule 500 mg PO QID 7 days #28 caps 08/20/23 Allergies Allergy/AdvReac Type Severity Reaction Status Date / Time amoxicillin [From AUGMENTIN] Allergy Unknown Verified 12/27/22 11:53 clavulanic acid Allergy Unknown Verified 12/27/22 11:53 [From AUGMENTIN] nickel [NICKEL] Allergy Unknown Verified 12/27/22 11:53 Review of Systems Constitutional Constitutional: Reports system reviewed and no additional complaints, except as documented Eyes Eyes: Reports system reviewed and no additional complaints, except as documented ENT Ears, Nose, Mouth, and Throat: Reports system reviewed and no additional complaints, except as documented Integumentary/Breasts Skin/Breast: Reports system reviewed and no additional complaints, except as documented Neurologic Neurologic: Reports system reviewed and no additional complaints, except as documented Patient History Medical History Eczema GERD (gastroesophageal reflux disease) HTN (hypertension) Hyperlipidemia Lung nodule seen on imaging study (11/2022) Surgical History H/O hammer toe correction Social History Smoking Status: Never smoker alcohol intake: current Smoking Status: Never smoker Substance Use Type: does not use Exam Initial Vital Signs Initial Vital Signs: Vital Signs Temperature 97.5 F L 08/20/23 06:55 Pulse Rate 93 H 08/20/23 06:55 Respiratory Rate 20 08/20/23 06:55 Blood Pressure 167/74 H 08/20/23 06:55 Pulse Oximetry 96 08/20/23 06:55 Oxygen Delivery Method Room Air 08/20/23 06:55 HENMO Head: abrasion (Left side forehead with surrounding erythema) Eyes General: Yes appearance normal, both eyes and all related structures Skin Other: Patient has a area of abrasions to her left forehead that are covered with a scab. There is surrounding erythema to this. There was no underlying abscess. There are no vesicles. No pustules. Neuro General: patient alert, patient awake and moves all extremities Course Vital Signs Vital signs: Vital Signs - 8 hr 08/20/23 06:55 Temperature 97.5 F L Pulse Rate 93 H Respiratory Rate 20 Blood Pressure 167/74 H Pulse Oximetry 96 Oxygen Delivery Method Room Air MDM - Skin/Abscess/Foreign Bdy MDM Narrative Medical decision making narrative: Patient does have an area of an abrasion to her left forehead with surrounding erythema that would be consistent with cellulitis. Low suspicion for zoster. Low suspicion for abscess. There was no ocular involvement. Plan will be to start the patient on antibiotics. Patient states she would like it sent to her mail order pharmacy because she states she can not get around and has to walk everywhere. We both understand that this will be a couple days before can be sent to her but given her presentation today I do not feel this is unreasonable. Will discharge patient home with return precautions. She expressed understanding and agreement. Discharge Plan Departure Patient Disposition: Home Clinical Impression: Cellulitis Instructions: DI for Cellulitis -- Adult Activity Restrictions/Additional Instructions: A prescription for antibiotics was sent to the [facility] mail-order pharmacy. Please start taking it as directed. You can shower like normal. You can use soap and water over the area. Return to the emergency department for new or worsening symptoms. Prescriptions: New cephalexin 500 mg capsule 500 mg PO QID 7 Days Qty: 28 0RF No Action ascorbic acid (vitamin C) 1,000 mg tablet 1 gram PO DAILY aspirin 81 MG tablet,delayed release (DR/EC) 81 mg PO QDAY Qty: 0 atorvastatin 20 mg tablet 20 mg PO BEDTIME Qty: 90 3RF omeprazole 20 mg capsule,delayed release(DR/EC) 20 mg PO DAILY metoprolol tartrate 50 mg tablet 25 mg PO BID Qty: 90 1RF losartan-hydrochlorothiazide 100-25 mg tablet 1 tab PO DAILY Qty: 90 3RF calcium carbonate [Calcium 500] 500 mg calcium (1,250 mg) tablet 250 mg PO TID rutin 500 mg tablet 500 mg PO DAILY Referrals: Marco Tam MD [Primary Care Provider] - Stand Alone Forms: Patient Portal/API
== END 2023-08-20 07:30 | disposition home or self-care (01) ==
PROVIDERS: Emergency Provider Emergency Medicine; PCP Family Medicine
DX: L03.211 Cellulitis of face (principal)
CPT/HCPCS: 99281; 99283

== ENCOUNTER → 2024-03-12 06:52 | Outpatient (CLI) | payer OTHER, SELFPAY ==
[2024-03-12 07:53] LABS: Add Manual Diff / Slide Review NO; Basophils Absolute Auto 0 /uL (0-100); Basophils Percent Auto 0.6 % (0-2); Eosinophils Absolute Auto 200 /uL (0-450); Hematocrit 40.3 % (36-46); Hemoglobin 13.9 g/dL (12.0-16.0); Lymphocytes Absolute Auto 2400 /uL (1100-4500); Mean Corpuscular HGB Conc 34.5 % (30-36); Mean Corpuscular Volume 89.8 fL (80-100); Monocytes Absolute Auto 500 /uL (0-900); Monocytes Percent Auto 6.5 % (3-14); Neutrophils Absolute Auto 4900 /uL (1500-7000); Neutrophils Percent Auto 60.9 % (50-75); Platelet Count 322 X10^3/uL (150-400); Red Blood Cell Count 4.48 X10^6/uL (4.0-5.2); Red Cell Distribution Width 12.5 % (11.6-14.8); White Blood Cell Count 8.1 X10^3/uL (4.5-11.0)
[2024-03-12 08:17] LABS: Alanine Aminotransferase 21 IU/L (<35); Albumin 4.4 g/dL (3.5-5.0); Albumin Globulin Ratio 1.5 (1.0-2.8); Alkaline Phosphatase 140 U/L (38-126); Aspartate Aminotransferase 24 IU/L (14-36); Bilirubin Total 0.7 mg/dL (0.2-1.3); Blood Urea Nitrogen 18 mg/dL (7-17); Calcium 9.5 mg/dL (8.4-10.2); Carbon Dioxide 37 mmol/L (22-32); Chloride 98 mmol/L (98-107); Cholesterol 188 mg/dL (140-199); Estimated Glomerular Filt Rate > 60 mL/min (>60); Glucose 110 mg/dL (80-110); HDL Cholesterol 40 mg/dL (40-60); HEMOLYSIS < 15 (0-50); LDL Cholesterol Calculated 99 mg/dL (<100); Potassium 3.5 mmol/L (3.4-5.1); Sodium 137 mmol/L (137-145); Total Protein 7.4 g/dL (6.3-8.2); Triglycerides 247 mg/dL (35-150)
[2024-03-12 08:43] LABS: TSH w/ Reflex to FT4 2.04 uIU/mL (0.47-4.68)
[2024-03-12 10:32] LABS: Creatinine Urine Random > 346.5 mg/dL; Microalbumin Urine Random 4.9 mg/dL (0-1.6)
[2024-03-12 10:43] LABS: Hep C Virus Ab w/Reflex Quant NEGATIVE s/c (NEGATIVE)
[2024-03-13 07:35] LABS: Apolipoprotein B 96 mg/dL (<90)
== END ==
LOC: LAB 06:53
PROVIDERS: PCP Family Medicine; Referring Provider Family Medicine; Visit Provider Family Medicine
DX: Z00.00 Encounter for general adult medical examination without abnormal findings (principal); E78.5 Hyperlipidemia, unspecified; K21.9 Gastro-esophageal reflux disease without esophagitis; I10 Essential (primary) hypertension
CPT/HCPCS: 36415; 80053; 80061; 82043; 82172; 82570; 84443; 85025; 86803

== ENCOUNTER → 2024-03-29 11:15 | Outpatient (CLI) | payer OTHER, SELFPAY ==
--- NOTE | 2024-03-29 11:16 | DI.RAD.S_ITS ---
PROCEDURE: XR DEXA AXIAL SKELETON INDICATIONS: Elevated alkaline phosphatase COMPARISON: None. FINDINGS: Lumbar Spine: Bone mineral density 0.917 g/cm2, T score -1.2, osteopenia. Left Hip: Bone mineral density 0.875 g/cm2, T score -0.5, normal. Left Femoral Neck: Bone mineral density 0.751 g/cm2, T score -0.9, normal. Right Hip: Bone mineral density 0.884 g/cm2, T score -0.5, normal. Right Femoral Neck: Bone mineral density 0.776 g/cm2, T score -0.7, normal. Fracture Risk Calculation (when applicable): 10-year fracture risk of a major osteoporotic fracture 8.2% and of a hip fracture at 0.9%. (T score greater or equal to -1.0 to: NORMAL) (T score from -1.1 to -2.4: OSTEOPENIA) (T score less than or equal to -2.5: OSTEOPOROSIS) IMPRESSION: Based on WHO criteria, the patient has osteopenia and increased risk for osteoporotic fractures. Follow-up guidelines as follows: Osteoporosis: Consider a repeat DEXA and Vertebral Fracture Assessment (VFA) exam in 2 years or sooner if medically necessary, to reassess this patient's status. Osteopenia: Consider a repeat DEXA in 2-3 years to reassess this patient's status, or if there is a new clinical indication. Normal: Consider a repeat DEXA in 5 years or sooner, or if there is a new clinical indication. Dictated by: Karolyn Abernathy M.D. on 03/29/2024 at 13:29 Approved by: Karolyn Abernathy M.D. on 03/29/2024 at 13:31
--- NOTE | 2024-03-29 11:16 | DI.CT.S_ITS ---
PROCEDURE: CT CHEST WO CON INDICATIONS: pulmonary nodule TECHNIQUE: Noncontrast 5 mm thick sections acquired from the pulmonary apices to the posterior costophrenic angles. 1 mm lung window, 5 mm thick coronal and sagittal and 7 mm axial MIP reformats were then acquired. For radiation dose reduction, the following was used: automated exposure control, adjustment of mA and/or kV according to patient size. COMPARISON: None. FINDINGS: Image quality: Diagnostic. Lower Neck: No enlarged lymph nodes. Thyroid: No thyroid nodules which require sonographic follow up, per consensus guidelines. Axillae: No enlarged lymph nodes. Chest Wall: Unremarkable. Bones: No suspicious osseous lesion. Lungs and Pleura: No pneumothorax or pleural effusions. No consolidation or suspicious nodules. Punctate right upper lobe pulmonary nodules unchanged. Several calcified granulomas. Heart: Heart size is normal. Mild coronary artery calcifications. No pericardial effusion. Thoracic Vessels: The aorta and pulmonary arteries demonstrate normal size. Mediastinum and Dali: No enlarged lymph nodes. Calcified granulomas. Esophagus: No wall thickening. Moderate hiatal hernia. Upper Abdomen: Visualized upper abdomen solid organs and bowel loops appear normal. IMPRESSION: No significant pulmonary nodules. No acute airspace opacity. Prior granulomatous process. Moderate hiatal hernia. Dictated by: Eamon Vigil M.D. on 03/29/2024 at 13:50 Approved by: Eamon Vigil M.D. on 03/29/2024 at 13:57
--- NOTE | 2024-03-29 11:16 | DI.MG.S_ITS ---
BILATERAL DIGITAL SCREENING MAMMOGRAM 3D/2D WITH CAD: 03/29/2024 CLINICAL: Routine screening. Comparison is made to exams dated: 03/10/2023 mammogram - [facility], 02/04/2019 mammogram - [facility], and 11/12/2012 mammogram - [facility]. Both breasts are almost entirely fatty (category a/<25% glandular tissue). Current study was also evaluated with a Computer Aided Detection (CAD) system. No significant masses, calcifications, or other findings are seen in either breast. There has been no significant interval change. IMPRESSION: NEGATIVE There is no mammographic evidence of malignancy. A 1 year screening mammogram is recommended. Based on the Tyrer Cuzick model (a risk assessment model) the patient's lifetime risk is 2.7% and her 10 year risk is 2.0%. According to the ACR, ACS, and NCCN guidelines, an annual breast MRI exam along with mammogram is recommended if the patient's lifetime risk is 20% or greater. This exam was interpreted at Station ID: [id number]. NOTE: For mammograms, a report in lay terms will be sent to the patient. Approximately 15% of breast malignancies will not be visualized mammographically. In the management of a palpable breast mass, a negative mammogram must not discourage biopsy of a clinically suspicious lesion. Electronically Signed By: George matos/chris:03/29/2024 12:07:26 letter sent: Normal Exam ACR BI-RADS Category 1: Negative 3341F
== END ==
PROVIDERS: PCP Family Medicine; Referring Provider Family Medicine; Visit Provider Family Medicine
DX: Z12.31 Encounter for screening mammogram for malignant neoplasm of breast (principal); R91.1 Solitary pulmonary nodule; E78.5 Hyperlipidemia, unspecified; K21.9 Gastro-esophageal reflux disease without esophagitis; I10 Essential (primary) hypertension; Z00.00 Encounter for general adult medical examination without abnormal findings; M85.89 Other specified disorders of bone density and structure, multiple sites; K44.9 Diaphragmatic hernia without obstruction or gangrene; M85.88 Other specified disorders of bone density and structure, other site
CPT/HCPCS: 71250; 77063; 77067; 77080

== ENCOUNTER 2024-06-04 13:35 | Day surgery (SDC) | payer OTHER, SELFPAY ==
--- NOTE | 2024-06-04 13:24 | PM.HP.1 ---
History of Present Illness History of Present Illness Date Patient Seen: 06/04/24 Time Patient Seen: 13:24 Chief complaint: Screening Colonoscopy Narrative: 74-year-old woman here for screening colonoscopy. Last colonoscopy was. No family history of colon cancer. No abdominal concerns today. [facility] Medical History Lung nodule seen on imaging study (11/2022) Hyperlipidemia GERD (gastroesophageal reflux disease) Eczema HTN (hypertension) Surgical History H/O hammer toe correction Social History Smoking Status: Never smoker alcohol intake: current Meds Home Medications and Allergies Home Medications Medication Instructions Recorded Confirmed Type aspirin 81 mg tablet,delayed 81 mg PO QDAY ##0 05/09/13 06/04/24 History release omeprazole 20 mg capsule,delayed 20 mg PO DAILY 09/27/21 06/04/24 History release atorvastatin 20 mg tablet 20 mg PO BEDTIME #90 tabs 03/11/24 06/04/24 Rx losartan 100 1 tab PO DAILY #90 tabs 03/11/24 06/04/24 Rx mg-hydrochlorothiazide 25 mg tablet metoprolol tartrate 50 mg tablet 25 mg (1/2 x 50 mg) PO BID #90 tabs 03/11/24 06/04/24 Rx Benadryl Allergy 25 mg PO BEDTIME 06/04/24 06/04/24 History Allergies Allergy/AdvReac Type Severity Reaction Status Date / Time amoxicillin [From AUGMENTIN] Allergy Unknown Verified 06/04/24 14:19 clavulanic acid Allergy Unknown Verified 06/04/24 14:19 [From AUGMENTIN] nickel [NICKEL] Allergy Unknown Verified 06/04/24 14:19 Exam Narrative Exam Narrative: General adult woman alert oriented no acute distress Chest nonlabored respiration Extremities warm well perfused Assessment & Plan Assessment & Plan narrative: The patient requires colorectal screening and colonoscopy is recommended. Technical details were discussed. Risks, benefits, alternatives explained. Risks including but not limited to myocardial infarction, aspiration, bleeding, pain, missed lesion, incomplete examination, need for further radiographic studies, intestinal injury, and need for major abdominal surgery were discussed. All questions were answered to their satisfaction, and they are in agreement with this plan. Time-Based Coding :: [TOTAL MINUTES] spent with patient and on the chart (including review of chart, obtaining history, exam, reviewing outside data, placing orders, documenting exam and treatment plan, and counseling patient) on [DATE].
[2024-06-04] MEDS: LACTATED RINGERS 1,000 ML 42 ML IV (14:02)
[2024-06-04 14:26] VITALS: BP 139/82; PULSE 74; RESP 20; TEMP 36.3; O2SAT 93
[2024-06-04 15:32] VITALS: BP 109/70; PULSE 72; RESP 13; TEMP 36.5; O2SAT 93
[2024-06-04 15:37] VITALS: PULSE 75; RESP 16; TEMP 36.5; O2SAT 94
[2024-06-04 15:38] VITALS: BP 123/76
--- NOTE | 2024-06-04 15:38 | P.OP.COLON_ITS ---
Operative Date/Time/Diagnoses Date of procedure: 06/04/24 Time of procedure: 15:38 Pre-op diagnosis: Colorectal screening Procedure & Clinicians Study performed: Screening colonoscopy Same procedure as scheduled: Yes Indications: Colorectal screening Surgeon: Jimmy Red Procedure Notes Procedure in detail: The history and physical was performed/updated and the patient is ASA class is 2. The procedure was discussed in detail with the patient. Potential risks co mplications including infection, bleeding, missed diagnosis, perforation, need for surgery, and were explained. Their questions were answered and informed consent was obtained. Patient was brought to the procedure room and placed standard monitoring equipment. The patient's vital signs were monitored continuously throughout the entire procedure. Prior to starting time-out was performed. The patient was placed in the left lateral recumbent position. Procedural sedation was administered by anesthesia. Examination began with a thorough inspection of the perianal area there was no evidence of fissures, fistulae, external hemorrhoids or cutaneous malignancy. The colonoscopy scope was then placed into the anal canal and was advanced to the cecum, which was identified by the ileocecal valve, the appendiceal orifice and the confluence of the taenia. The scope was then slowly withdrawn examining colon thoroughly in all directions, irrigating it of any residual stool. The scope was retroflexed within the rectum The patient tolerated the procedure well. They will be discharged once criteria are met. The prep was of good/excellent quality. The withdrawl time was 6 minutes. FINDINGS * Unremarkable colonoscopy. No polyps or masses Specimen(s): none sent Impression: Normal colonoscopy Post-procedure Plan for aftercare: No further colonoscopy necessary unless symptomatic Disposition: same day surgery
[2024-06-04 15:43] VITALS: BP 116/74; PULSE 69; RESP 18; TEMP 36.4; O2SAT 94
== END 2024-06-04 15:53 | disposition home or self-care (01) ==
PROVIDERS: PCP Family Medicine; Referring Provider Surgery; Visit Provider Surgery
PROC: 0DJD8ZZ Inspection of Lower Intestinal Tract, Via Natural or Artificial Opening Endoscopic (ICD-10-PCS; CPT 45378; principal; 2024-06-04 14:45)
DX: Z12.11 Encounter for screening for malignant neoplasm of colon (principal); E78.5 Hyperlipidemia, unspecified; K21.9 Gastro-esophageal reflux disease without esophagitis
CPT/HCPCS: G0121; J2704

== ENCOUNTER → 2025-06-20 06:53 | Outpatient (CLI) | payer OTHER, SELFPAY ==
[2025-06-20 07:36] LABS: Add Manual Diff / Slide Review NO; Hematocrit 38.6 % (36-46); Hemoglobin 13.3 g/dL (12.0-16.0); Lymphocytes Absolute Auto 2400 /uL (1100-4500); Mean Corpuscular HGB Conc 34.5 % (30-36); Mean Corpuscular Hemoglobin 30.8 PG (26-34); Mean Corpuscular Volume 89.4 fL (80-100); Platelet Count 279 X10^3/uL (150-400)
[2025-06-20 07:57] LABS: Alanine Aminotransferase 19 IU/L (<35); Albumin 3.9 g/dL (3.5-5.0); Albumin Globulin Ratio 1.4 (1.0-2.8); Alkaline Phosphatase 122 U/L (38-126); Blood Urea Nitrogen 17 mg/dL (7-17); Calcium 9.4 mg/dL (8.4-10.2); Carbon Dioxide 25 mmol/L (22-32); Chloride 104 mmol/L (98-107); Cholesterol 173 mg/dL (140-199); Estimated Glomerular Filt Rate > 60 mL/min (>60); Globulin 2.8 g/dL (1.7-4.1); Glucose 116 mg/dL (70-99); HDL Cholesterol 52 mg/dL (40-60); HEMOLYSIS < 15 (0-50); Potassium 4.1 mmol/L (3.4-5.1); Sodium 138 mmol/L (137-145); Total Protein 6.7 g/dL (6.3-8.2); Triglycerides 126 mg/dL (35-150)
[2025-06-20 08:02] LABS: Microalbumi Creatinin Ratio Ur 12.0 ug/mg CR (<30)
[2025-06-20 08:27] LABS: TSH w/ Reflex to FT4 1.72 uIU/mL (0.47-4.68)
== END ==
PROVIDERS: PCP Family Medicine; Referring Provider Family Medicine; Visit Provider Family Medicine
DX: Z00.00 Encounter for general adult medical examination without abnormal findings (principal); E78.2 Mixed hyperlipidemia; I10 Essential (primary) hypertension; R91.1 Solitary pulmonary nodule; N95.1 Menopausal and female climacteric states
CPT/HCPCS: 36415; 80053; 80061; 82043; 82570; 84443; 85025

== ENCOUNTER → 2025-06-23 14:51 | Outpatient (CLI) | payer OTHER, SELFPAY ==
--- NOTE | 2025-06-23 14:53 | DI.MG.S_ITS ---
MM screening mammo BI: 06/23/2025. BI-RADS: 1 CLINICAL: 75-year old female for bilateral screening mammogram. Tyrer-Cuzick lifetime risk of 2.7%. No personal or first-degree family history of breast cancer. PRIOR EXAMS 03/29/2024, 03/10/2023, 02/04/2019. MAMMOGRAPHY TECHNIQUE: 2D and 3D (tomosynthesis) digital mammographic views obtained, with additional images as needed for full coverage. Current study was also evaluated with a Computer Aided Detection (CAD) system. DENSITY B. There are scattered areas of fibroglandular density. MAMMOGRAPHY FINDINGS Bilateral: No suspicious mass, asymmetry, microcalcification, or other abnormality seen. IMPRESSION: * No evidence of malignancy. RECOMMENDATIONS Bilateral * Annual screening mammography. OVERALL ASSESSMENT CATEGORY BI-RADS-1: Negative. The [employer] recommends annual screening mammography beginning at age 40 for women with average risk of breast cancer. ELECTRONICALLY SIGNED: Summer Barber M.D. on 06/23/2025 at 05:03:51 PM PT Interpreting Station ID: [id number]
== END ==
PROVIDERS: PCP Family Medicine; Referring Provider Family Medicine; Visit Provider Family Medicine
DX: Z12.31 Encounter for screening mammogram for malignant neoplasm of breast (principal)
CPT/HCPCS: 77063; 77067